=== PATIENT | female | born 1955 | race Caucasian/White ===

== ENCOUNTER 2021-09-07 01:37 | Emergency (ER) | payer MEDICARE, OTHER ==
[~2021-09-07 01:37] MED LIST: CORTIZONE-1057 GM TP; KEFLEX CAP 500500 MG PO
[2021-09-07 02:09] LABS: RED BLOOD COUNT 4.84 M/UL (4.00-5.10); WHITE BLOOD COUNT 14.4 K/UL (4.5-11.0)
[2021-09-07 02:37] LABS: BUN/CREATININE RATIO 22 (0-10)
[2021-09-07] MEDS ORDERED: ZOFRAN ODT 4 MG4 MG PO (04:21)
[2021-09-07] MEDS ORDERED: CEFUROXIME500 MG PO (04:21)
== END 2021-09-07 04:40 | disposition home or self-care (01) ==
LOC: ER1 01:37
PROVIDERS: Emergency Medicine
DX: N39.0 Urinary tract infection, site not specified (principal); F17.210 Nicotine dependence, cigarettes, uncomplicated; Z88.2 Allergy status to sulfonamides; Z88.5 Allergy status to narcotic agent
CPT/HCPCS: 80053; 81001; 83690; 85025; 87086; 96374; 99284; J0696; Q9967

== ENCOUNTER → 2021-09-28 | Outpatient (CLI) | payer MEDICARE, OTHER ==
[~2021-09-28] MED LIST changes: +CEFUROXIME500 MG PO; +ZOFRAN ODT 4 MG4 MG PO
== END ==
LOC: KOH-I 09-19 13:30
DX: R22.1 Localized swelling, mass and lump, neck (principal)
CPT/HCPCS: 76536